=== PATIENT | male | born 1980 | race Caucasian/White ===

== ENCOUNTER 2017-02-12 20:00 | Emergency (ER) | payer BC ==
[2017-02-12 20:16] VITALS: BP 144/87; PULSE 91; TEMP 98.9; BMI 25.8
[2017-02-12] MEDS ORDERED: ASPIRIN 81 MG CHEWABLE TABLETS PO ONE (20:35)
[2017-02-12] MEDS ORDERED: ASPIRIN 81 MG CHEWABLE TABLETS ONE (20:40)
--- NOTE | 2017-02-12 20:53 | PDOC ---
History of Present Illness - General History Source: Patient Exam Limitations: No Limitations <Kavin Herman - Last Filed: 02/12/17 23:06> <Justine Peace - Last Filed: 02/13/17 00:34> - General Chief Complaint: Chest Pain Stated Complaint: CHEST PAIN/SOB Time Seen by Provider: 02/12/17 20:10 - History of Present Illness Initial Comments: 02/12/17 20:46 The patient is a year 36 old male, with a significant past medical history of polycythemia, who presents to the emergency department complaining of intermittent left sided chest pain that began while sitting at the table this evening. The patient describes the chest pain as a non radiating tightness on the left side that lasted approx a few minutes. The patient notes that during the episode of chest pain he also experienced shortness of breath, dry cough, dizziness and diaphoresis. The patient notes that he has been experiencing similar symptoms over the past two years and was told that he has indigestion after having an echocardiogram. He reports taking two Advil prior to arrival with mild relief. He denies any recent fevers or chills. He denies any recent nausea, vomit, diarrhea or constipation. Allergies: NKA Past surgical history: None reported. Social History: Nonsmoker. Denies EtOH use and recreational drug use. Family History: The patient states that his uncle had a myocardial infarction at 62 years old. 02/12/17 21:08 (Kavin Herman) Past History - Psycho/Social/Smoking Cessation Hx Suicidal Ideation: No Smoking History: Never smoked Have you smoked in the past 12 months: No Number of Cigarettes Smoked Daily: 0 Information on smoking cessation initiated: No Hx Alcohol Use: No Drug/Substance Use Hx: No <Kavin Herman - Last Filed: 02/12/17 23:06> <Justine Peace - Last Filed: 02/13/17 00:34> - Past Medical History Allergies/Adverse Reactions: Allergies Allergy/AdvReac Type Severity Reaction Status Date / Time No Known Allergies Allergy Verified 02/12/17 20:14 Home Medications: Ambulatory Orders Ranitidine HCl [Zantac] 150 mg PO DAILY #30 tablet 02/13/17 Review of Systems <Kavin Herman - Last Filed: 02/12/17 23:06> <Justine Peace - Last Filed: 02/13/17 00:34> - Review of Systems Comments:: 02/12/17 20:49 GENERAL/CONSTITUTIONAL: +Diaphoresis. No fever or chills. HEAD, EYES, EARS, NOSE AND THROAT: No change in vision. No ear pain or discharge. No sore throat. CARDIOVASCULAR: +Intermittent left sided chest pain. +Shortness of breath. RESPIRATORY: +Dry cough. No wheezing, or hemoptysis. GASTROINTESTINAL: No nausea, vomiting, diarrhea or constipation. GENITOURINARY: No dysuria, frequency, or change in urination. MUSCULOSKELETAL: No joint or muscle swelling or pain. No neck or back pain. SKIN: No rash NEUROLOGIC: +Dizziness. No headache, loss of consciousness, or change in strength/sensation. ENDOCRINE: No increased thirst. No abnormal weight change. HEMATOLOGIC/LYMPHATIC: No anemia, easy bleeding, or history of blood clots. ALLERGIC/IMMUNOLOGIC: No hives or skin allergy. (Kavin Herman) *Physical Exam <Kavin Herman - Last Filed: 02/12/17 23:06> <Justine Peace - Last Filed: 02/13/17 00:34> - Vital Signs Last Vital Signs Temp Pulse Resp BP Pulse Ox 98.9 F 91 H 20 144/87 98 02/12/17 20:14 02/12/17 20:14 02/12/17 20:14 02/12/17 20:14 02/12/17 20:14 - Physical Exam Comments: 02/12/17 20:52 GENERAL: Awake, alert, and fully oriented, in no acute distress HEAD: No signs of trauma EYES: PERRLA, EOMI, sclera anicteric, conjunctiva clear ENT: Auricles normal inspection, hearing grossly normal, nares patent, oropharynx clear without exudates. Moist mucosa NECK: Normal ROM, supple, no lymphadenopathy, JVD, or masses LUNGS: Breath sounds equal, clear to auscultation bilaterally. No wheezes, and no crackles HEART: Regular rate and rhythm, normal S1 and S2, no murmurs, rubs or gallops ABDOMEN: Soft, nontender, normoactive bowel sounds. No guarding, no rebound. No masses EXTREMITIES: Normal range of motion, no edema. No clubbing or cyanosis. No cords, erythema, or tenderness NEUROLOGICAL: Cranial nerves II through XII grossly intact. Normal speech, normal gait SKIN: Warm, Dry, normal turgor, no rashes or lesions noted. (Kavin Herman) ED Treatment Course - LABORATORY CBC & Chemistry Diagram: 02/12/17 20:50 02/12/17 20:50 <Kavin Herman - Last Filed: 02/12/17 23:06> - LABORATORY CBC & Chemistry Diagram: 02/12/17 20:50 02/12/17 20:50 - RADIOLOGY Chest X-Ray Result: No Infiltrates <Justine Peace - Last Filed: 02/13/17 00:34> - ADDITIONAL ORDERS Additional order review: Laboratory Results 02/12/17 20:50 Sodium 140 Potassium 4.1 Chloride 104 Carbon Dioxide 29 Anion Gap 7 L BUN 16 Creatinine 1.0 Creat Clearance w eGFR > 60 Random Glucose 106 Calcium 8.5 Total Bilirubin 0.3 AST 23 ALT Alkaline Phosphatase 133 H Creatine Kinase 110 Troponin I < 0.02 Total Protein 6.8 Albumin 3.8 02/12/17 20:50 RBC 5.16 MCV 86.5 MCHC 34.3 RDW 12.4 MPV 8.6 Neutrophils % 55.0 Lymphocytes % 32.8 D Monocytes % 7.9 Eosinophils % 3.8 D Basophils % 0.5 - RADIOLOGY Radiology Studies Ordered: Category Date Time Status CHEST PA & LAT [RAD] Stat Radiology 02/12/17 20:35 Taken Radiograph Interpretation: 02/12/17 21:58 No acute disease process (Justine Peace) - Medications Given in the ED: ED Medications Discontinued Medications Generic Name Dose Route Start Last Admin Trade Name Jimyq PRN Reason Stop Dose Admin Aspirin 162 mg 02/12/17 20:35 02/12/17 20:49 Asa - PO 02/12/17 20:36 162 mg ONCE ONE Administration Medical Decision Making <Kavin Herman - Last Filed: 02/12/17 23:06> <Justine Peace - Last Filed: 02/13/17 00:34> - Medical Decision Making 02/12/17 23:06 Dr. Peace spoke with Dr. Rollins at 11:00 pm. (Kavin Herman) 02/12/17 22:24 pt initial labs normal. cxr unremarkable. given asa here. feeling better. suggest to pt to stay for second 4 hr troponin. pt unable to stay as significant other has to leave to take her keppra and can not drive. will follow up dr rollins. given number for cardiology. pt has had prior work up echo in past 1 yr ago which was normal. states no stress. will recommend outpt stress if continues to have pain . 02/13/17 00:28 d/w dr rollins, will see pt in office in two days call tomorrow to schedule. recommend antacid if not taking. per pt supposed to be taking zantac, and is not taking. (Justine Peace) *DC/Admit/Observation/Transfer <Kavin Herman - Last Filed: 02/12/17 23:06> - Discharge Dispostion Admit: No <Justine Peace - Last Filed: 02/13/17 00:34> Diagnosis at time of Disposition: Chest pain - Discharge Dispostion Disposition: HOME Condition at time of disposition: Improved - Prescriptions Prescriptions: Ranitidine HCl [Zantac] 150 mg PO DAILY #30 tablet - Referrals Referrals: Ganesh Rollins MD [Staff Physician] - Jacques No MD [Primary Care Provider] - Keith Berry MD [Staff Physician] - - Patient Instructions Printed Discharge Instructions: DI for Atypical Chest Pain Additional Instructions: you should continue to take aspirin 81 mg daily. you should also follow up with Dr Rollins call to tomorrow to schedule for thursday, or you can just show up to office on thursday morning. . you should also follow up with a annual giving manager. you can call dr. Berry, see referral information to schedule an oupatient stress test for continue chest pain. In addition you should be taking zantac 150 mg daily. return for any recurrent or severe symptoms or any concerns. - Attestations Scribe Attestion: 02/12/17 20:53 Documentation prepared by Kavin Herman, acting as diagnostic medical sonographer for Jsutine Peace MD. (Kavin Herman)
[2017-02-12 21:13] LABS: BASOPHIL 0.5 % (0-2.0); EOSINOPHIL 3.8 % (0-4.5); MCH 29.7 pg (25.7-33.7); MCHC 34.3 g/dl (32.0-35.9); MEAN CELL VOLUME 86.5 fl (80-96); MEAN PLT VOLUME 8.6 fl (7.5-11.1); PLATELET COUNT 205 K/MM3 (134-434); RDW 12.4 % (11.9-15.9); WHITE BLOOD COUNT 6.6 K/mm3 (4.0-10.0)
[2017-02-12 21:50] LABS: ALBUMIN 3.8 g/dl (3.4-5.0); ANION GAP 7 (8-16); BILIRUBIN,TOTAL 0.3 mg/dL (0.2-1.0); CALCIUM 8.5 mg/dL (8.5-10.1); CO2 29 mmol/L (21-32); GLUCOSE,RANDOM 106 mg/dL (74-106); TOT PROT 6.8 g/dl (6.4-8.2)
[2017-02-12 21:52] LABS: ALK PHOS 133 U/L (45-117); CPK 110 IU/L (39-308); TROPONIN I < 0.02 ng/ml (0.00-0.05)
[2017-02-12 21:54] LABS: SGOT/AST 23 U/L (15-37)
[2017-02-13 00:41] LABS: CPK 92 IU/L (39-308)
[2017-02-13 00:42] LABS: TROPONIN I < 0.02 ng/ml (0.00-0.05)
--- NOTE | 2017-02-13 12:26 | EKG ---
Test Reason : Blood Pressure : / mmHG Vent. Rate : 084 BPM Atrial Rate : 084 BPM P-R Int : 142 ms QRS Dur : 094 ms QT Int : 354 ms P-R-T Axes : 066 065 051 degrees QTc Int : 418 ms NORMAL SINUS RHYTHM POSSIBLE LEFT ATRIAL ENLARGEMENT RSR' OR QR PATTERN IN V1 SUGGESTS RIGHT VENTRICULAR CONDUCTION DELAY NO PREVIOUS ECGS AVAILABLE Confirmed by MD ROMEL, KEEGAN ([id number]) on 02/13/2017 12:25:57 PM Referred By: Confirmed By:KEEGAN URENA MD
== END 2017-02-13 01:07 | disposition home or self-care (01) ==
LOC: JER 20:00
DX: R07.9 Chest pain, unspecified (principal); D75.1 Secondary polycythemia
CPT/HCPCS: 36415; 71020-TC; 80053; 84484; 85025; 93005; 93010; 99283-25